=== PATIENT | female | born 2000 | race African-American/Black ===

== ENCOUNTER 2024-12-22 06:59 | Outpatient (REF) | payer OTHER, SELFPAY ==
--- NOTE | ~2024-12-22 | US_ITS ---
EXAMINATION: US PELVIS TRANSABDOMINAL AND TRANSVAGINAL HISTORY: H/O 8.1CM FIBROID 2022, CHECK SIZE COMPARISON: There are no prior studies for comparison. TECHNIQUE: Transabdominal real-time 2D fregoso-scale ultrasound was performed. The patient declined endovaginal examination. FINDINGS: Uterus: The uterus is enlarged measuring 18.8 x 9.5 x 6.8 cm. Myometrium has a normal echotexture. There is a fundal fibroid measuring 8.9 x 9.5 x 10.6 cm. Endometrium: The endometrial stripe measures 4 mm in thickness. Right ovary: The right ovary measures 3.6 x 1.7 x 2.1 cm. The right ovary is normal in size and echotexture. Left ovary: The left ovary measures 2.6 x 1.2 x 1.6 cm. The left ovary is normal in size and echotexture. Pelvic fluid: none. US/US pelvic and transvaginal IMPRESSION: 8.9 x 9.5 x 10.6 cm fundal fibroid. Electronically signed by: Clark Charles MD 12/23/2024 08:03 AM EDT
== END 2024-12-22 07:00 | disposition home or self-care (01) ==
LOC: HO.UMASIMG 06:59
PROVIDERS: Visit Provider Nurse Practitioner Women's Health
DX: D25.9 Leiomyoma of uterus, unspecified (principal)
CPT/HCPCS: 76830; 76856

== ENCOUNTER → 2024-12-22 13:15 | Outpatient (BNV) | payer OTHER, SELFPAY | PROVIDERS: Visit Provider Radiology Diagnostic Radiology | DX: D25.9 Leiomyoma of uterus, unspecified (principal) | CPT/HCPCS: 76830; 76856 ==